=== PATIENT | female | born 2000 | race Caucasian/White ===

== ENCOUNTER 2021-11-10 19:48 | Observation (INO) ==
[2021-11-10 20:39] LABS: Basophils # 0.1 K/mcL (0.0-0.2); Basophils % 1.1 %; Eosinophils # 0.1 K/mcL (0.0-0.6); Eosinophils % 1.3 %; Hematocrit 43.9 % (35.3-44.9); Hemoglobin 14.5 g/dL (11.5-15.4); Immature Granulocytes % 0.3 % (0-4); Lymphocytes # 1.9 K/mcL (0.6-4.6); Lymphocytes % 18.4 %; Mean Corpuscular Hemoglobin 28.9 pg (28.0-33.3); Mean Corpuscular Volume 87.5 fL (83.0-100.0); Mean Platelet Volume 11.8 fL (9.4-12.4); Monocytes # 0.7 K/mcL (0.0-1.3); Monocytes % 6.7 %; Neutrophils # 7.5 K/mcL (1.6-8.9); Platelet Count 333 K/mcL (140-400); Red Blood Count 5.02 M/mcL (3.82-4.97); Red Cell Distribution Width 13.7 % (11.5-14.5); Segmented Neutrophils % 72.2 %; White Blood Count 10.3 K/mcL (4.3-11.1)
[2021-11-10 20:40] LABS: Bilirubin,Urine Negative (Negative); Blood,Urine Negative (Negative); Clarity,Urine Clear (Clear); Color,Urine Yellow (Yellow); Glucose,Urine (UA) Normal (Normal); Ketones,Urine Negative (Negative); Leukocyte Esterase,Urine Trace (Negative); Mucus,Urine Many per lpf (None-Few); Nitrite,Urine Negative (Negative); Protein,Urine Trace mg/dL (Neg-Trace); Specific Gravity,Urine 1.028 (1.010-1.025); Squamous Epithelial Cell,Urine Few per hpf (None-Few); Urobilinogen,Urine Normal (Normal); WBC,Urine 0-3 per hpf (0-3)
[2021-11-10 20:56] LABS: Amphetamine Screen,Urine Negative ng/mL (Cutoff=1000); Barbiturate Screen,Urine Negative ng/mL (Cutoff=200); Benzodiazepines Screen,Urine Negative ng/mL (Cutoff=200); Cannabinoid Screen,Urine Positive ng/mL (Cutoff = 50); Cocaine Screen,Urine Negative ng/mL (Cutoff= 300); Opiate Screen,Urine Negative ng/mL (Cutoff=300); Phencyclidine Screen,Urine Negative ng/mL (Cutoff=25)
[2021-11-10 21:03] LABS: Acetaminophen < 10 mcg/mL (10-20); BUN/Creatinine Ratio 14 (6-26); Blood Urea Nitrogen 10 mg/dL (6-20); Calcium 9.5 mg/dL (8.6-10.3); Carbon Dioxide 24 mEq/L (23-29); Chloride 101 mEq/L (98-107); Chol/HDL Ratio 3.7 (0-4.9); Cholesterol 236 mg/dL (< 200); Ethanol < 10 mg/dL (Less than 10); Glucose 100 mg/dL (70-105); HDL Cholesterol 63 mg/dL (40-59); LDL Cholesterol,Calculated 156 mg/dL (< 100); Osmolality,Calculated 277 (280-300); Potassium 3.9 mEq/L (3.5-5.1); Salicylate < 2.5 mg/dL (15.0-30.0); Sodium 134 mEq/L (136-145); Triglycerides 86 mg/dL (< 150)
[2021-11-10 21:17] LABS: Influenza A PCR Negative (Negative); Influenza B PCR Negative (Negative); Resp. Syncytial Virus PCR Negative (Negative)
[2021-11-10 21:25] LABS: SARS-CoV-2 by PCR (In House) Positive (Negative)
[2021-11-10] MEDS ORDERED: Ondansetron 4 MG/2 ML VIAL IVP PRN (23:07)
[2021-11-10] MEDS ORDERED: Naloxone 0.4 MG/ML INJ IVP PRN (23:07)
[2021-11-10] MEDS ORDERED: Acetaminophen 325 MG TABLET PO ONE (23:29)
[2021-11-11] MEDS ORDERED: Nicotine 2 MG GUM BC ONE (00:21)
[2021-11-11] MEDS ORDERED: Nicotine 21 MG PATCH.TD24 TD ONE (00:23)
[2021-11-11 06:20] LABS: Hematocrit 39.3 % (35.3-44.9); Mean Corpuscular HGB Conc 32.8 g/dL (31.6-35.5); Mean Corpuscular Hemoglobin 28.8 pg (28.0-33.3); Mean Corpuscular Volume 87.7 fL (83.0-100.0); Mean Platelet Volume 11.6 fL (9.4-12.4); Platelet Count 295 K/mcL (140-400); Red Blood Count 4.48 M/mcL (3.82-4.97); Red Cell Distribution Width 13.6 % (11.5-14.5); White Blood Count 9.9 K/mcL (4.3-11.1)
[2021-11-11 06:21] LABS: Hemoglobin 12.9 g/dL (11.5-15.4)
[2021-11-11 06:50] LABS: BUN/Creatinine Ratio 12 (6-26); Blood Urea Nitrogen 9 mg/dL (6-20); Carbon Dioxide 29 mEq/L (23-29); Chloride 105 mEq/L (98-107); Glucose 108 mg/dL (70-105); Osmolality,Calculated 289 (280-300); Potassium 3.5 mEq/L (3.5-5.1); Sodium 140 mEq/L (136-145)
[2021-11-11] MEDS ORDERED: Cholecalciferol (D-3) 1,000 UNIT (25MCG) TABLET PO SCH (09:00)
[2021-11-11] MEDS ORDERED: Nicotine 21 MG PATCH.TD24 TD SCH (11:15)
[2021-11-11 12:32] VITALS: BP 125/80; PULSE 58; TEMP 98.3; O2SAT 100
[2021-11-11 14:26] LABS: Thyroid Stimulating Hormone 1.827 mcIU/mL (0.340-5.600)
== END 2021-11-11 13:01 ==
LOC: EMEROOARM 19:48 → 3ANU 19:48 → SUATTDRO 23:00 → 3ANU 11-11 01:15
PROVIDERS: ADMIT Internal Medicine; ATTEND Internal Medicine

== ENCOUNTER 2021-11-11 12:57 | Inpatient (IN) ==
[2021-11-11] MEDS ORDERED: Mag Hydrox/Al Hydrox/Simeth 30 ML UDC PO PRN (12:59)
[2021-11-11] MEDS ORDERED: *HR* LORazepam 1 MG TABLET PO PRN (12:59)
[2021-11-11] MEDS ORDERED: Nicotine 2 MG GUM BC PRN (12:59)
[2021-11-11] MEDS ORDERED: *HR* LORazepam 2 MG/ML VIAL IM PRN (12:59)
[2021-11-11] MEDS ORDERED: MOM Conc 10 ML UD.LIQ PO PRN (12:59)
[2021-11-11] MEDS ORDERED: Loratadine 10 MG TABLET PO PRN (13:03)
[2021-11-11] MEDS: hydrOXYzine pamoate 25 MG CAPSULE PO PRN ×2 (14:46→21:05)
[2021-11-11] MEDS: Ibuprofen 400 MG TABLET PO PRN (15:43)
[2021-11-11] MEDS: Ondansetron ODT 4 MG TAB.RAPDIS SL PRN (18:12)
[2021-11-11] MEDS: traZODone 50 MG TABLET PO PRN (21:02)
[2021-11-12] MEDS: Ibuprofen 400 MG TABLET PO PRN ×2 (07:13→22:38)
[2021-11-12] MEDS ORDERED: [UNRECOGNIZED DRUG - OTHER] PO SCH (09:00)
[2021-11-12] MEDS: Cholecalciferol (D-3) 1,000 UNIT (25MCG) TABLET PO SCH (12:54)
[2021-11-12] MEDS: Nicotine 21 MG PATCH.TD24 TD SCH (12:57)
[2021-11-12] MEDS: hydrOXYzine pamoate 25 MG CAPSULE PO PRN (17:55)
[2021-11-12] MEDS: traZODone 50 MG TABLET PO PRN (20:34)
[2021-11-12] MEDS: ARIPiprazole 2 MG TABLET PO SCH (20:34)
[2021-11-13] MEDS: Cholecalciferol (D-3) 1,000 UNIT (25MCG) TABLET PO SCH (09:00)
[2021-11-13] MEDS: Nicotine 21 MG PATCH.TD24 TD SCH (09:00)
[2021-11-13] MEDS: Ondansetron ODT 4 MG TAB.RAPDIS SL PRN (12:04)
[2021-11-13] MEDS: hydrOXYzine pamoate 25 MG CAPSULE PO PRN (12:32)
[2021-11-13] MEDS: ARIPiprazole 2 MG TABLET PO SCH (20:44)
[2021-11-13] MEDS: traZODone 50 MG TABLET PO PRN (20:45)
[2021-11-13 21:20] VITALS: O2SAT 99
[2021-11-14] MEDS: Ibuprofen 400 MG TABLET PO PRN (06:43)
[2021-11-14] MEDS: Cholecalciferol (D-3) 1,000 UNIT (25MCG) TABLET PO SCH (08:08)
[2021-11-14] MEDS: Nicotine 21 MG PATCH.TD24 TD SCH (08:08)
[2021-11-14] MEDS: hydrOXYzine pamoate 25 MG CAPSULE PO PRN (08:08)
[2021-11-14 08:41] VITALS: BP 125/82; PULSE 75; TEMP 97.1
[2021-11-14] MEDS ORDERED: ARIPiprazole 5 MG TABLET PO SCH (21:00)
== END 2021-11-14 13:05 | disposition home or self-care (01) | DRG 885 ==
LOC: MERGE 12:57 → 1ANU 12:57
PROVIDERS: ADMIT Psychiatry & Neurology Psychiatry; ATTEND Psychiatry & Neurology Psychiatry